=== PATIENT | female | born 1940 | race Caucasian/White ===

== ENCOUNTER → 2016-07-12 | Outpatient (CLI) | payer OTHER ==
[~2016-07-12] MED LIST: ALDACTONE PO; ALLEGRA PO; COMBIVENT INH14.7 GM INH; DITROPAN PO; KCL PO; LOPID600 MG PO; MOBIC PO; PREMARIN PO; PROTONIX PO; PULMOCORT; SULAR PO
--- NOTE | ~2016-07-12 | CR184 ---
[facility] A Service of [facility] RADIOLOGY TEXT RESULTS PATIENT: NAVYA VORA LOCATION: [facility] : 44 UNIT #: [id number] AGE: [address]: ALEX GONZALEZ APRN SEX: F ORDER DR: [id number] [facility] [address] [place], [place] [address] [id number] O MR#: [id number] Acc #: [id number] NAME: NAVYA VORA : 1940 SEX: F STUDY DATE/TIME: 07/12/2016 15:38 UNIT: [facility] ROOM: STUDY DESCRIPTION: CR Lumbar Spine Min 4 Views Attending Physician: Alex Gonzalez A.P.R.N. Referring Physician: Alex Gonzalez A.P.R.N. Ordering Physician: Alex Gonzalez A.P.R.N. Primary Care Physician: Torie Blanc M.D. MEDICAL IMAGING REPORT This report is preliminary unless electronic signature is present EXAM Lumbar spine 5 views HISTORY Pain after fall 2 months ago. FINDINGS 5 views lumbar spine were obtained, including flexion and extension in the lateral projection. Mild right thoracolumbar junction curve. Laminectomies from L3 to L5. 2 mm anterior subluxation of L3 on L4 and L4 on L5, with no instability on flexion and extension. No fracture. IMPRESSION 1. No fracture. 2. No instability with flexion and extension. 3. 2 mm anterior subluxation of L3 on L4 and L4 on L5. 4. Laminectomies from L3 to L5. 5. Mild degenerative disc space narrowing from L2-L3 to L5-S1. Dictated by... Miguel Angel Scott M.D. THIS IS AN ELECTRONICALLY VERIFIED REPORT Miguel Angel Scott M.D. at 07/12/2016 10:46 PM DFL/pcl TD: 07/12/2016 19:07 JOB #: [id number] MEDICAL IMAGING REPORT Page 1 of 1 COPY
== END | disposition home or self-care (01) ==
LOC: CRAD 15:12
DX: M48.06 Spinal stenosis, lumbar region (principal); S33.131A Dislocation of L3/L4 lumbar vertebra, initial encounter; S33.141A Dislocation of L4/L5 lumbar vertebra, initial encounter
CPT/HCPCS: 72110